=== PATIENT | male | born 1970 ===

== ENCOUNTER 2018-09-17 14:14 | Emergency (ER) | payer SELFPAY ==
[~2018-09-17] VITALS: Ht 177.8 cm; Wt 105.0 kg
--- NOTE | 2018-09-17 14:26 | NUR ---
PT ARRIVES TO ED WITH CHEST PAIN THAT IS LOCATED IN HIS CHEST WITH NO RADIATION. PT REPORTS PAIN WAS A 8/10 AND RELEIVED WITH NITRO 0.8MG. PT ON ARRIVAL HAD EKG COMPLETED AND CALL LIGHT IS IN REACH. CONNECTED TO ALL MONITORS. EMS GAVE 324MG ASA ON SCENE. AND 2.5M,G OF VERSED VIA IV THAT WAS PLACED BY THEM. PT ON ARRIVAL IS ANXIOUS AND HAS SOME DIAPHORESIS. AWAIITNG FURHER ORDERS AT THIS TIME. PT IS HTN AND MD AWARE. FLUIDS STARTED FOR TACHYCARDIA.
[2018-09-17] MEDS ORDERED: LORazepam 2 MG/ML, 1ML IVPush ONE (14:30)
[2018-09-17] MEDS ORDERED: LORazepam 2 MG/ML, 1ML ONE (14:43)
[2018-09-17 14:56] LABS: BASOPHILS # (AUTO) 0.04 x10^3/uL (0-0.1); BASOPHILS % (AUTO) 0 % (0-1); EOSINOPHILS # (AUTO) 0.17 x10^3/uL (0-0.4); EOSINOPHILS % (AUTO) 2 % (1-7); LYMPHOCYTES # (AUTO) 1.34 x10^3/uL (1-3.4); LYMPHOCYTES % (AUTO) 14 % (22-44); MD NO; MEAN CORPUSCULAR HEMOGLOBIN 30.9 pg (27.5-34.5); MEAN CORPUSCULAR HGB CONC 33.4 g/dL (33.2-36.2); MEAN CORPUSCULAR VOLUME 92.6 fL (81-97); MONOCYTES # (AUTO) 0.52 x10^3/uL (0.2-0.8); MONOCYTES % (AUTO) 5 % (2-9); NEUTROPHILS % (AUTO) 79 % (42-75); PLATELET COUNT 195 x10^3/uL (130-400); RED BLOOD COUNT 5.56 x10^6/uL (4.38-5.82)
[2018-09-17 15:00] LABS: ALBUMIN 3.5 g/dL (3.4-5.0); ANION GAP 10 mmol/L (5-15); CALCIUM 8.2 mg/dL (8.5-10.1); CHLORIDE 107 mmol/L (98-107)
--- NOTE | 2018-09-17 15:02 | NUR ---
PT MEDICATED FOR ANXIETY.
[2018-09-17 15:07] LABS: ALANINE AMINOTRANSFERASE 54 U/L (12-78); ALKALINE PHOSPHATASE 74 U/L (45-117); BILIRUBIN,TOTAL 0.7 mg/dL (0.2-1.0); CREATININE 1.11 mg/dL (0.7-1.3); TOTAL PROTEIN 7.4 g/dL (6.4-8.2); TROPONIN I < 0.015 ng/mL (0.000-0.045)
[2018-09-17 16:43] VITALS: BP 142/98
--- NOTE | 2018-09-17 16:43 | NUR ---
AWAITING UA AT THIS TIME.
--- NOTE | 2018-09-17 17:08 | NUR ---
BP BACK UP AT THIS TIME. MD AWARE, PO BP MEDS TO BE ORDERED.
[2018-09-17] MEDS ORDERED: ENALAPRILAT 1.25 MG/ML, 2ML ONE (17:24)
[2018-09-17 17:27] LABS: AMPHETAMINE SCREEN, URINE Negative (Negative); BARBITURATE SCREEN, URINE Negative (Negative); BENZODIAZEPINE SCREEN, URINE Positive (Negative); CANNABINOID SCREEN, URINE Positive (Negative); COCAINE SCREEN, URINE Negative (Negative); METHADONE SCREEN, URINE Negative (Negative); OPIATE SCREEN, URINE Negative (Negative)
[2018-09-17] MEDS ORDERED: ENALAPRILAT 1.25 MG/ML, 2ML IV ONE (17:30)
--- NOTE | 2018-09-17 17:34 | NUR ---
VASOTECH GIVEN, WILL MONITOR PT FOR 30 MINUTES PRIOR TO DC.
--- NOTE | 2018-09-17 18:05 | NUR ---
BP STILL ELEVATED AT THIS TIME. MD INFORMED OF VITALS. WOULD STILL LIKE TO DC AT THIS TIME.
--- NOTE | 2018-09-17 18:05 | NUR ---
Patient/Caregiver given discharge instructions and they have confirmed that they understand the instructions. Patient ambulatory with steady gait.
== END 2018-09-17 18:08 | disposition home or self-care (01) ==
LOC: ED 16:35
DX: I10 Essential (primary) hypertension (principal); F17.210 Nicotine dependence, cigarettes, uncomplicated; Z72.9 Problem related to lifestyle, unspecified; F32.9 Major depressive disorder, single episode, unspecified
CPT/HCPCS: 36415; 71045; 80053; 80307; 84484; 85025; 93005; 96374; 96375; 99284; 99406; J2060

== ENCOUNTER 2019-03-18 15:10 | Emergency (ER) | payer SELFPAY ==
[~2019-03-18] VITALS: Ht 177.8 cm; Wt 97.9 kg
[~2019-03-18 15:10] MED LIST: CLON0.1T22 PO; LISI-170 PO; PARO20TA4 PO
--- NOTE | 2019-03-18 15:49 | NUR ---
PT PRESENTS TO ED FOR HIGH BP. STATES HE WAS WOKING TODAY, BECAME DIZZY AND FELT LIKE HE WAS GOING TO PASS OUT. DENIES DIZZINESS OR LOC. SHORTLY AFTER HE DEVP LEFT ARM TINGLING. DENIES ANY RECENT TRAUMA OR HEAD INJ. CP MONITORS IN PLACE.
[2019-03-18] MEDS ORDERED: LORazepam 2 MG/ML, 1ML IVPush ONE (16:00)
[2019-03-18] MEDS ORDERED: NITROGLYCERIN OINT 2%, 1GM TP ONE ×2 (16:00→16:03)
[2019-03-18] MEDS ORDERED: SODIUM CHLORIDE FLUSH 10ML SYR IVF ONE (16:00)
[2019-03-18] MEDS ORDERED: ASPIRIN 81 MG TABLET CHEW PO ONE (16:00)
[2019-03-18] MEDS ORDERED: LABETALOL 5MG/ML, 20ML IVPush ONE (16:00)
[2019-03-18] MEDS ORDERED: LORazepam 2 MG/ML, 1ML ONE (16:03)
[2019-03-18] MEDS ORDERED: LABETALOL 5MG/ML, 20ML ONE (16:03)
[2019-03-18] MEDS ORDERED: ASPIRIN 81 MG TABLET CHEW ONE (16:03)
[2019-03-18 16:14] LABS: BASOPHILS # (AUTO) 0.15 x10^3/uL (0-0.1); BASOPHILS % (AUTO) 2 % (0-1); EOSINOPHILS # (AUTO) 0.14 x10^3/uL (0-0.4); EOSINOPHILS % (AUTO) 2 % (1-7); LYMPHOCYTES # (AUTO) 2.34 x10^3/uL (1-3.4); LYMPHOCYTES % (AUTO) 27 % (22-44); MD NO; MEAN CORPUSCULAR HEMOGLOBIN 31.7 pg (27.5-34.5); MEAN CORPUSCULAR HGB CONC 33.5 g/dL (33.2-36.2); MEAN CORPUSCULAR VOLUME 94.7 fL (81-97); MEAN PLATELET VOLUME 8.6 fL (7.4-10.4); MONOCYTES # (AUTO) 0.66 x10^3/uL (0.2-0.8); MONOCYTES % (AUTO) 8 % (2-9); NEUTROPHILS # (AUTO) 5.52 x10^3/uL (1.8-6.8); NEUTROPHILS % (AUTO) 63 % (42-75); PLATELET COUNT 185 x10^3/uL (130-400); RED BLOOD COUNT 5.57 x10^6/uL (4.38-5.82); RED CELL DISTRIBUTION WIDTH 14.2 % (9.4-14.8)
[2019-03-18 16:24] LABS: ALANINE AMINOTRANSFERASE 49 U/L (12-78); ALBUMIN 3.9 g/dL (3.4-5.0); ANION GAP 9 mmol/L (5-15); CALCIUM 8.7 mg/dL (8.5-10.1); CHLORIDE 106 mmol/L (98-107); CREATININE 1.03 mg/dL (0.7-1.3)
[2019-03-18 16:28] LABS: ALKALINE PHOSPHATASE 87 U/L (45-117); BILIRUBIN,TOTAL 0.8 mg/dL (0.2-1.0); TOTAL PROTEIN 8.3 g/dL (6.4-8.2); TROPONIN I < 0.015 ng/mL (0.000-0.045)
--- NOTE | 2019-03-18 16:28 | NUR ---
PT BACK FROM CT. STATES HE FEELS BETTER. LEFT ARM TINGLING STILL PRESENT BUT LESS THAN ON ARRIVAL. BP NOW 173/105.
[2019-03-18 17:50] VITALS: BP 148/92
--- NOTE | 2019-03-18 18:07 | NUR ---
Patient/Caregiver given discharge instructions and they have confirmed that they understand the instructions. Patient ambulatory with steady gait. Pt left with all personal belongings.
== END 2019-03-18 18:08 | disposition home or self-care (01) ==
LOC: ED 16:46
DX: I16.9 Hypertensive crisis, unspecified (principal); F17.200 Nicotine dependence, unspecified, uncomplicated; R51 Headache
CPT/HCPCS: 36415; 70450; 71045; 80053; 84484; 85025; 93005; 96374; 96375; 99284; J2060